=== PATIENT | female | born 1970 | race Hispanic/Latino ===

== ENCOUNTER 2017-11-12 13:18 | Outpatient (CLI) | payer MEDICARE ==
[2017-11-12] MEDS ORDERED: XYLOCAINE TOPICAL 4% TP ONE (13:42)
[2017-11-12] MEDS ORDERED: NACL 0.9% IR PRN (13:42)
[2017-11-12] MEDS ORDERED: NACL 0.9% 500 ML IR ONE (15:40)
== END 2017-11-12 13:19 | disposition home or self-care (01) ==
LOC: WOUND 13:18
PROVIDERS: ATTEND Surgery
DX: I87.2 Venous insufficiency (chronic) (peripheral) (principal); L97.821 Non-pressure chronic ulcer of other part of left lower leg limited to breakdown of skin; J44.9 Chronic obstructive pulmonary disease, unspecified; G47.30 Sleep apnea, unspecified; F32.9 Major depressive disorder, single episode, unspecified; I10 Essential (primary) hypertension; Z87.891 Personal history of nicotine dependence; Z72.89 Other problems related to lifestyle
CPT/HCPCS: 11042; 11045; G0463

== ENCOUNTER 2017-11-19 14:33 | Outpatient (CLI) | payer MEDICARE ==
[2017-11-19] MEDS ORDERED: NACL 0.9% IR PRN (14:59)
[2017-11-19] MEDS ORDERED: XYLOCAINE TOPICAL 4% TP ONE ×2 (15:00→15:02)
[2017-11-19] MEDS ORDERED: NACL 0.9% 500 ML IR ONE (15:02)
== END 2017-11-19 14:34 | disposition home or self-care (01) ==
LOC: WOUND 14:33
PROVIDERS: ATTEND Surgery
DX: I87.2 Venous insufficiency (chronic) (peripheral) (principal); L97.821 Non-pressure chronic ulcer of other part of left lower leg limited to breakdown of skin; E66.9 Obesity, unspecified; I10 Essential (primary) hypertension; J44.9 Chronic obstructive pulmonary disease, unspecified; G47.30 Sleep apnea, unspecified; Z68.45 Body mass index [BMI] 70 or greater, adult; Z87.891 Personal history of nicotine dependence; Z72.89 Other problems related to lifestyle
CPT/HCPCS: 99213; G0463

== ENCOUNTER 2017-11-26 12:58 | Outpatient (CLI) | payer MEDICARE ==
[2017-11-26] MEDS ORDERED: XYLOCAINE TOPICAL 4% TP ONE ×4 (13:57→15:32)
== END 2017-11-26 12:59 | disposition home or self-care (01) ==
LOC: WOUND 12:58
PROVIDERS: ATTEND Surgery
DX: I87.2 Venous insufficiency (chronic) (peripheral) (principal); L97.821 Non-pressure chronic ulcer of other part of left lower leg limited to breakdown of skin; E66.9 Obesity, unspecified; I10 Essential (primary) hypertension; J44.9 Chronic obstructive pulmonary disease, unspecified; G47.30 Sleep apnea, unspecified; Z68.45 Body mass index [BMI] 70 or greater, adult; Z87.891 Personal history of nicotine dependence; Z72.89 Other problems related to lifestyle

== ENCOUNTER 2017-12-03 13:49 | Outpatient (CLI) | payer MEDICARE ==
[2017-12-03] MEDS ORDERED: XYLOCAINE TOPICAL 4% TP ONE ×3 (14:17→14:30)
== END 2017-12-03 13:50 | disposition home or self-care (01) ==
LOC: WOUND 13:49
PROVIDERS: ATTEND Surgery
DX: I87.2 Venous insufficiency (chronic) (peripheral) (principal); L97.821 Non-pressure chronic ulcer of other part of left lower leg limited to breakdown of skin; E66.9 Obesity, unspecified; I10 Essential (primary) hypertension; J44.9 Chronic obstructive pulmonary disease, unspecified; G47.30 Sleep apnea, unspecified; Z68.45 Body mass index [BMI] 70 or greater, adult; Z87.891 Personal history of nicotine dependence; Z72.89 Other problems related to lifestyle
CPT/HCPCS: 99215; G0463

== ENCOUNTER 2017-12-12 08:56 | Outpatient (CLI) | payer MEDICARE ==
[2017-12-12] MEDS ORDERED: XYLOCAINE TOPICAL 4% TP ONE (09:18)
[2017-12-12] MEDS ORDERED: NACL 0.9% 500 ML IR ONE (09:37)
[2017-12-12] MEDS ORDERED: NACL 0.9% 500 ML IRRIGATION SCH (10:00)
[2017-12-12] MEDS ORDERED: DAKIN'S FULL STRENGTH ONE (10:28)
[2017-12-12] MEDS ORDERED: DAKIN'S FULL STRENGTH TP ONE (15:12)
== END 2017-12-12 08:57 | disposition home or self-care (01) ==
LOC: WOUND 08:56
PROVIDERS: ATTEND Nurse Practitioner
DX: I87.312 Chronic venous hypertension (idiopathic) with ulcer of left lower extremity (principal); L97.221 Non-pressure chronic ulcer of left calf limited to breakdown of skin; J44.9 Chronic obstructive pulmonary disease, unspecified; G47.30 Sleep apnea, unspecified; E66.01 Morbid (severe) obesity due to excess calories; Z68.45 Body mass index [BMI] 70 or greater, adult; Z90.49 Acquired absence of other specified parts of digestive tract; Z72.89 Other problems related to lifestyle; Z87.891 Personal history of nicotine dependence
CPT/HCPCS: 87075; 87076; 87116; 87186

== ENCOUNTER 2017-12-17 13:44 | Outpatient (CLI) | payer MEDICARE ==
[2017-12-17] MEDS ORDERED: NACL 0.9% IR PRN (13:57)
[2017-12-17] MEDS ORDERED: XYLOCAINE TOPICAL 4% TP ONE (14:56)
== END 2017-12-17 13:45 | disposition home or self-care (01) ==
LOC: WOUND 13:44
PROVIDERS: ATTEND Surgery
DX: I87.312 Chronic venous hypertension (idiopathic) with ulcer of left lower extremity (principal); L97.221 Non-pressure chronic ulcer of left calf limited to breakdown of skin; E66.01 Morbid (severe) obesity due to excess calories; J44.9 Chronic obstructive pulmonary disease, unspecified; G47.30 Sleep apnea, unspecified; Z68.45 Body mass index [BMI] 70 or greater, adult; Z87.891 Personal history of nicotine dependence; Z72.89 Other problems related to lifestyle

== ENCOUNTER 2017-12-31 13:26 | Outpatient (CLI) | payer MEDICARE ==
[2017-12-31] MEDS ORDERED: XYLOCAINE TOPICAL 4% TP ONE (14:21)
== END 2017-12-31 13:27 | disposition home or self-care (01) ==
LOC: WOUND 13:26
PROVIDERS: ATTEND Surgery
DX: I87.312 Chronic venous hypertension (idiopathic) with ulcer of left lower extremity (principal); L97.221 Non-pressure chronic ulcer of left calf limited to breakdown of skin; E66.01 Morbid (severe) obesity due to excess calories; J44.9 Chronic obstructive pulmonary disease, unspecified; G47.30 Sleep apnea, unspecified; Z68.45 Body mass index [BMI] 70 or greater, adult; Z87.891 Personal history of nicotine dependence; Z72.89 Other problems related to lifestyle